=== PATIENT | male | born 1965 | race Two or more races ===

== ENCOUNTER 2020-07-16 10:17 | Outpatient (REF) | payer OTHER, SELFPAY | END 2020-07-16 10:18 | disposition home or self-care (01) | LOC: HO.LAB 10:17 | PROVIDERS: Visit Provider Internal Medicine | DX: Z20.828 Contact with and (suspected) exposure to other viral communicable diseases (principal) | CPT/HCPCS: C9803; U0003 ==

== ENCOUNTER 2020-10-22 15:50 | Outpatient (REF) | payer OTHER, SELFPAY ==
[2020-10-22 16:51] LABS: Hemoglobin 15.4 g/dl (14.0-18.0); Mean Corpuscular HGB Conc 34.2 g/dl (31.0-36.0); Mean Corpuscular Hemoglobin 29.9 pg (27.0-33.0); Mean Corpuscular Volume 87.4 fL (80-98); Mean Platelet Volume 12.2 fL (9.4-12.4); Platelet Count 200 X10*3/uL (160-400); Red Blood Count 5.15 X10*6/uL (4.60-5.80); Red Cell Distribution Width 12.1 % (11.0-16.0); White Blood Count 6.6 X10*3/uL (4.8-10.8)
[2020-10-22 17:10] LABS: Alanine Aminotransferase 20 U/L (0-40); Albumin Level 4.6 g/dL (3.5-5.0); Alkaline Phosphatase 68 U/L (39-117); Anion Gap 12 (12-20); Aspartate Amino Transferase 24 U/L (5-37); Bilirubin Direct 0.2 mg/dL (0.0-0.5); Bilirubin Total 0.6 mg/dL (0.0-1.0); Blood Urea Nitrogen 12 mg/dL (9-16); Calcium 10.1 mg/dL (8.4-10.2); Carbon Dioxide 29 mmol/L (22-29); Chloride 104 mmol/L (96-108); Cholesterol 161 mg/dL; Estimated Glomerular Filt Rate > 60; Glucose Random 82 mg/dL (60-115); HDL Cholesterol 54 mg/dL; LDL Cholesterol Calculated 97 mg/dl; Potassium 4.4 mmol/L (3.3-5.1); Sodium 141 mmol/L (135-145); Total Protein 7.9 g/dL (6.5-8.0); Triglycerides 52 mg/dL
[2020-10-22 17:33] LABS: Thyroid Stimulating Hormone 0.59 uIU/mL (0.32-4.0)
[2020-10-22 17:42] LABS: Folate 12.1 ng/mL (> or = 4.0); Vitamin B12 684 pg/mL (200-900)
[2020-10-22 17:59] LABS: Estimated Average Glucose 166 mg/dL; Hemoglobin A1c % 7.4 %
[2020-10-22 18:55] LABS: Microalbum/Creatinine Ratio Ur 235.7 ug/mg cr
[2020-10-27 12:01] LABS: Vitamin D 25-OH, D2 <4 ng/mL; Vitamin D 25-OH, D3 27 ng/mL; Vitamin D 25-OH, Total 27 ng/mL (30-100)
== END 2020-10-22 15:51 | disposition home or self-care (01) ==
LOC: HO.LAB 15:50
PROVIDERS: PCP Internal Medicine; Visit Provider Internal Medicine
DX: E11.9 Type 2 diabetes mellitus without complications (principal)
CPT/HCPCS: 36415; 80048; 80061; 80076; 82043; 82306; 82607; 82746; 83036; 84443; 85027

== ENCOUNTER 2021-02-28 14:23 | Emergency (ER) | payer OTHER, SELFPAY ==
--- NOTE | ~2021-02-28 | XR_ITS ---
EXAMINATION: XR FOOT, LEFT CLINICAL INFORMATION: Left heel pain COMPARISON: None TECHNIQUE: AP, lateral, and oblique views of the left foot. FINDINGS: There is no visible acute fracture, dislocation or subluxation seen. A moderate size calcaneal heel and a small retrocalcaneal enthesophytes. The ankle mortise and subtalar joints are normal. XR/XR foot LT min 3V IMPRESSION: Unremarkable left foot exam.
[2021-02-28 14:40] VITALS: BP 160/93; PULSE 88; RESP 18; TEMP 36.6; O2SAT 97; BMI 24.3
--- NOTE | 2021-02-28 15:31 | ED_ITS ---
HPI - Extremity Injury (Lower) General Chief Complaint: Extremity Injury, Lower Stated Complaint: foot pain Time Seen by Provider: 02/28/21 14:52 Source: patient Mode of arrival: ambulatory Limitations: no limitations History of Present Illness complaint: foot injury Onset (ago): day(s) (Three days worse today) Injury: Left: foot Place: street/outdoors (While mowing the lawn) Severity: mild Relieving factors: nothing Exacerbating factors: weight bearing, movement and palpation Context: walking and other (While mowing the lawn) Associated symptoms: ambulatory Other symptoms: none Related Data Previous Rx's Medication Instructions Recorded glimepiride 4 mg tablet 4 mg PO QAM #90 tab 06/26/20 simvastatin 40 mg tablet 40 mg PO QPM #90 tab 11/28/20 metformin 500 mg tablet 500 mg PO DAILY #90 tab 02/03/21 lidocaine HCl 4 % topical cream 1 appl TOPICAL BID PRN #120 g 02/28/21 (Aspercreme (lidocaine HCl)) naproxen 500 mg tablet 500 mg PO BID PRN #10 tab 02/28/21 oxycodone-acetaminophen 5 mg-325 1 tab PO Q6H PRN #10 tab 02/28/21 mg tablet (Percocet) Allergies Allergy/AdvReac Type Severity Reaction Status Date / Time No Known Allergies Allergy Verified 02/03/21 14:19 Review of Systems Review of Systems: Constitutional : No changes in activity, No lethargy, No recent prior head injury, No agitation, No increased fussiness ENT/Mouth : No Ear Pain, No Nasal discharge/drainage Eyes: No Eye Pain, No Swelling, No Redness, No Foreign Body, No Vision Changes Cardiovascular : No Chest Pain, No SOB Respiratory : No Cough Gastrointestinal : No Nausea, No Vomiting, No abdominal Pain Genitourinary : No Dysuria, No Urinary Frequency, No Urinary Incontinence, No Urgency, No Flank Pain Musculoskeletal : + joint pain, No neck stiffness, No back pain/injury Skin : No lacerations Neuro : No unsteady gait, No Paresthesias, No Loss of Consciousness, No altered mental status, No Headache Yes all other systems are reviewed and are negative [facility] Past Medical History Attestation statement: The following information was validated with the patient. 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 Hypercholesterolemia Hypertension Surgical History No history of previous surgery Family History Family History Mother Mental problem Father Renal failure Social History Social History Housing: Apartment Alcohol intake: current Alcohol intake frequency: holidays/special occasions only Alcohol type: beer Patient Tobacco Use Status: Never used Tobacco e-Cigarette/Vaping Use: Never Used Second Hand Smoke Exposure: No Advance Directives: No Advance Directives Information Provided: No service: No Current occupational status: retired Physical Exam Vital Signs: Vital Signs: Last Vital Signs Temp 98 F 02/28/21 14:40 Pulse 88 02/28/21 14:40 Resp 18 02/28/21 14:40 BP 160/93 H 02/28/21 14:40 Pulse Ox 97 02/28/21 14:40 Body Mass Index 24.3 vital signs have been reviewed as normal and appeared to be correct. Blood pressure normal. Heart rate normal. Respiration rate normal. Temperature normal. Oxygen saturation normal. Appearance: Alert. Oriented X3. No acute distress. Head: Normal external exam. Normocephalic. Atraumatic. Eyes: PERRLA. EOMI. Conjunctiva and sclera normal. Eyelids normal. ENT: Pharynx normal. Uvula midline. Moist mucous membranes. Neck: Normal inspection. Neck supple. FROM. No adenopathy. Thyroid Normal. No meningeal signs. No neck mass noted. CVS: Normal heart rate and rhythm. Heart sound normal. Pulses normal throughout. No murmurs/rales/gallops. Respiratory: No respiratory distress. Painless inspiration. Breath sounds normal. No wheezes/rales/rhonchi noted. Chest nontender. No accessory muscle usage noted or decreased air movement noted. Back:Full range of motion noted. No rashes/lesion/induration/fluctuance or signs of infection noted. Skin: Skin warm and dry. Normal skin color. Normal skin turgor. No rashes/lesions/lacerations noted. Extremities: Patient with tenderness to palpation to plantar aspect of left foot. No erythema or obvious deformities or ligamentous laxity. Achilles tendon is intact. No swelling noted. Patient has full range of motion of the foot/ankle joint. No lower extremity edema. Extremities exhibit normal range of motion. Extremities nontender. Neuro: Oriented X 3. No motor deficit. No sensory deficit. Reflexes normal. Normal steady gait. No focal neuro deficits noted. Vascular: + radial pulses/+ 2 distal pedal pulses/+2 dorsalis pedis b/l. Normal cap refill. No cyanosis noted to upper extremity nails and lower extremity toes nails. Course Course Course Narrative: 55-year-old male presenting to the ED with complaints of left heel pain after he was mowing the lawn approximately 3 days ago. Denies any actual fall. On exam patient has pain to plantar/heel aspect of foot. No signs of infection. Ankle joint is nontender. Achilles tendon is intact. X-ray obtained and negative for any acute processes. Will DC home with symptomatic treatment instructions return if any new or worsening symptoms to follow up with primary care provider. Patient understands agrees with this plan. MDM - Extremity Injury (Lower) Medical Records Attestation: I reviewed the patient's medical records. Imaging Data Left foot x-ray: Attestation: I personally reviewed and interpreted this imaging study as follows: Radiologist's impression: FINDINGS: There is no visible acute fracture, dislocation or subluxation seen. A moderate size calcaneal heel and a small retrocalcaneal enthesophytes. The ankle mortise and subtalar joints are normal. XR/XR foot LT min 3V IMPRESSION: Unremarkable left foot exam. Discharge Plan Discharge Clinical Impression: Bone spur of foot, Plantar fasciitis of left foot Patient Disposition: Home, Self-Care Instructions: Plantar Fasciitis (ED), Heel Spur (ED), Plantar Fasciitis Exercises (ED) Prescriptions: New lidocaine HCl [Aspercreme (lidocaine HCl)] 4 % cream 1 appl topical BID PRN (Reason: pain) Qty: 120 RF: 0 oxycodone-acetaminophen [Percocet] 5-325 mg tablet 1 tab PO Q6H PRN (Reason: pain) Qty: 10 RF: 0 naproxen 500 mg tablet 500 mg PO BID PRN (Reason: pain) Qty: 10 RF: 0 No Action glimepiride 4 mg tablet 4 mg PO QAM Qty: 90 RF: 1 simvastatin 40 mg tablet 40 mg PO QPM Qty: 90 RF: 0 metformin 500 mg tablet 500 mg PO DAILY Qty: 90 RF: 1 Referrals: Elmer Atkinson [Physician] - 2 days Print Language: Kiswahili
== END 2021-02-28 15:42 | disposition home or self-care (01) ==
PROVIDERS: Emergency Provider Emergency Medicine
DX: M77.32 Calcaneal spur, left foot (principal); M72.2 Plantar fascial fibromatosis; E11.9 Type 2 diabetes mellitus without complications
CPT/HCPCS: 73630; 99283

== ENCOUNTER 2021-05-22 13:55 | Emergency (ER) | payer OTHER, SELFPAY ==
[2021-05-22 14:21] VITALS: BP 166/67; PULSE 70; RESP 16; TEMP 36.9; O2SAT 98; BMI 26.1
--- NOTE | 2021-05-22 14:48 | ED_ITS ---
HPI - General Adult General Chief complaint: Dental/Oral Stated complaint: QUEST FACIAL INFECTION Time Seen by Provider: 05/22/21 14:48 Source: patient Limitations: no limitations History of Present Illness HPI narrative: Patient has a known history of dental caries and dental abscess. Patient states increasing pain after biting on a chicken bone. Patient states pain is diffuse in his oral cavity. Also some redness the right nasal fold. Symptoms mild to moderate pain 10/10. No nausea vomiting fever chills shortness of breath. Related Data Previous Rx's Medication Instructions Recorded simvastatin 40 mg tablet 40 mg PO QPM #90 tab 11/28/20 metformin 500 mg tablet 500 mg PO DAILY #90 tab 02/03/21 lidocaine HCl 4 % topical cream 1 appl TOPICAL BID PRN #120 g 02/28/21 (Aspercreme (lidocaine HCl)) naproxen 500 mg tablet 500 mg PO BID PRN #10 tab 02/28/21 oxycodone-acetaminophen 5 mg-325 1 tab PO Q6H PRN #10 tab 02/28/21 mg tablet (Percocet) glimepiride 4 mg tablet 4 mg PO QAM #90 tab 03/11/21 clindamycin HCl 300 mg capsule 300 mg PO TID 7 Days #21 cap 05/22/21 ibuprofen 600 mg tablet 600 mg PO TID PRN #20 tab 05/22/21 Allergies Allergy/AdvReac Type Severity Reaction Status Date / Time No Known Allergies Allergy Verified 02/03/21 14:19 Review of Systems Constitutional: Constitutional: Denies chills, Denies fever(s) and Denies headache(s) Eyes: Eyes: Denies loss of vision ENT: Reports facial pain, Denies headache(s) and Reports mouth pain Cardiovascular: Cardiovascular: Denies chest pain and Denies dyspnea Respiratory: Respiratory: Denies dyspnea Musculoskeletal: Musculoskeletal: Reports no additional musculoskeletal complaints Neurologic: Denies headache(s) and Denies loss of vision [facility] Past Medical History 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4 F 05/22/21 14:21 Pulse 70 05/22/21 14:21 Resp 16 05/22/21 14:21 BP 166/67 H 05/22/21 14:21 Pulse Ox 98 05/22/21 14:21 Body Mass Index 26.1 vital signs have been reviewed as normal and appeared to be correct. Blood pressure normal. Heart rate normal. Respiration rate normal. Temperature normal. Oxygen saturation normal. Appearance: Alert. Oriented X3. No acute distress. Head: Normal external exam. Normocephalic. Atraumatic. = Eyes: PERRLA. EOMI. Conjunctiva and sclera normal. Eyelids normal. Bilateral orbits nontender no signs of preseptal cellulitis ENT: Pharynx normal. Uvula midline. Moist mucous membranes. Dentition in poor repair diffuse tenderness no obvious drainable abscess Neck: Soft full range of motion CVS: Heart regular rate and rhythm no murmurs and rubs Respiratory: Breath sounds are clear to auscultation bilaterally. No accessory muscle use noted. Skin: Patient describes some redness the right nasal fold no obvious abscess noted minimal to no erythema Extremities: No lower extremity edema. Extremities exhibit normal range of motion. Extremities nontender. Neuro: Oriented X 3. No motor deficit. No sensory deficit. Reflexes normal. Course Course Course Narrative: Dental caries Dental abscess Right-sided facial pain facial cellulitis Patient's symptoms are consistent with dental caries will treat with antibiotics at this time follow-up with dentist Discharge Plan Discharge Clinical Impression: Dental caries Patient Disposition: Home, Self-Care Instructions: Toothache (ED) Additional Instructions: Call dentist for follow-up antibiotics as directed Prescriptions: New clindamycin HCl 300 mg capsule 300 mg PO TID 7 Days Qty: 21 RF: 0 ibuprofen 600 mg tablet 600 mg PO TID PRN (Reason: pain) Qty: 20 RF: 0 No Action simvastatin 40 mg tablet 40 mg PO QPM Qty: 90 RF: 0 glimepiride 4 mg tablet 4 mg PO QAM Qty: 90 RF: 1 lidocaine HCl [Aspercreme (lidocaine HCl)] 4 % cream 1 appl topical BID PRN (Reason: pain) Qty: 120 RF: 0 oxycodone-acetaminophen [Percocet] 5-325 mg tablet 1 tab PO Q6H PRN (Reason: pain) Qty: 10 RF: 0 naproxen 500 mg tablet 500 mg PO BID PRN (Reason: pain) Qty: 10 RF: 0 metformin 500 mg tablet 500 mg PO DAILY Qty: 90 RF: 1
== END 2021-05-22 15:04 | disposition home or self-care (01) ==
PROVIDERS: Emergency Provider Emergency Medicine; PCP Internal Medicine
DX: K02.9 Dental caries, unspecified (principal); Z79.899 Other long term (current) drug therapy
CPT/HCPCS: 99283

== ENCOUNTER 2021-07-30 11:21 | Outpatient (REF) | payer OTHER, SELFPAY ==
[2021-07-30 12:15] LABS: Hematocrit 43.8 % (42.0-52.0); Mean Corpuscular HGB Conc 34.2 g/dl (31.0-36.0); Mean Corpuscular Hemoglobin 30.5 pg (27.0-33.0); Mean Corpuscular Volume 89.2 fL (80.0-98.0); Mean Platelet Volume 11.8 fL (9.4-12.4); Platelet Count 194 X10*3/uL (160-400); Red Blood Count 4.91 X10*6/uL (4.60-5.80); Red Cell Distribution Width 12.1 % (11.0-16.0); White Blood Count 7.7 X10*3/uL (4.8-10.8)
[2021-07-30 12:20] LABS: Appearance Urine CLEAR; Color Urine YELLOW; Glucose Urine UA NEG (NEG); Leukocyte Esterase Urine NEG (NEG); Nitrite Urine NEG (NEG); Specific Gravity - Urine >= 1.030 (1.005-1.025); Urine Blood NEG (NEG); Urine Ketones 5 MG/DL (NEG); Urine Protein 1+ MG/DL (NEG-TRACE)
[2021-07-30 12:21] LABS: Estimated Average Glucose 154 mg/dL
[2021-07-30 12:46] LABS: Alanine Aminotransferase 23 U/L (0-40); Albumin Level 4.3 g/dL (3.5-5.0); Alkaline Phosphatase 60 U/L (39-117); Anion Gap 12 (12-20); Aspartate Amino Transferase 23 U/L (5-37); Bilirubin Direct 0.2 mg/dL (0.0-0.5); Bilirubin Total 0.5 mg/dL (0.0-1.0); Blood Urea Nitrogen 13 mg/dL (9-16); Calcium 10.2 mg/dL (8.4-10.2); Carbon Dioxide 28 mmol/L (22-29); Chloride 108 mmol/L (96-108); Cholesterol 154 mg/dL; Estimated Glomerular Filt Rate > 60; Glucose Random 120 mg/dL (60-115); HDL Cholesterol 57 mg/dL; LDL Cholesterol Calculated 88 mg/dl; Potassium 4.6 mmol/L (3.3-5.1); Sodium 143 mmol/L (135-145); Total Protein 7.5 g/dL (6.5-8.0); Triglycerides 48 mg/dL
[2021-07-30 12:50] LABS: RBC Urine 0 /HPF (0); Squamous Epithelial Cell Urine TRACE /LPF; WBC Urine 0-2 /HPF (0-4)
[2021-07-30 13:11] LABS: Thyroid Stimulating Hormone 0.94 uIU/mL (0.32-4.0)
== END 2021-07-30 11:22 | disposition home or self-care (01) ==
LOC: HO.LAB 11:21
PROVIDERS: PCP Internal Medicine; Visit Provider Internal Medicine
DX: E11.9 Type 2 diabetes mellitus without complications (principal); E78.00 Pure hypercholesterolemia, unspecified
CPT/HCPCS: 36415; 80048; 80061; 80076; 81001; 83036; 84443; 85027

== ENCOUNTER 2023-03-19 12:39 | Emergency (ER) | payer OTHER, SELFPAY ==
--- NOTE | ~2023-03-19 | XR_ITS ---
EXAMINATION: XR FOOT, RIGHT CLINICAL INFORMATION: Lateral pain COMPARISON: None available. TECHNIQUE: AP, lateral, and oblique views of the right foot. FINDINGS: No acute visible fracture or dislocation. Multi joint arthritic changes. Plantar calcaneal heel spur. Mild spurring the dorsal midfoot. Joint spaces and alignment are otherwise maintained. Soft tissues are unremarkable. Prominent atherosclerotic calcifications. XR/XR foot RT min 3V IMPRESSION: 1. No acute visible fracture or dislocation. 2. Multi joint arthritic changes. 3. Plantar calcaneal heel spur.
[2023-03-19 12:53] VITALS: BP 140/92; PULSE 89; RESP 18; TEMP 36.4; O2SAT 97; BMI 24.1
--- NOTE | 2023-03-19 12:55 | ED.LOWEXIN ---
HPI - Extremity Injury (Lower) General Chief Complaint: Extremity Injury, Lower Stated Complaint: R foot pain Time Seen by Provider: 03/19/23 13:38 Source: patient Mode of arrival: ambulatory Limitations: no limitations History of Present Illness HPI Narrative: 49-year-old male presents to the ER for evaluation of right lateral foot pain that started yesterday after he missed a step 1 walking down stairs. He states he had minimal swelling or pain at the time. As time went on he started to develop some soreness in the right lateral foot near the heel. He is able to put on issues and ambulate normally. No ankle injury. No open wounds. Denies any numbness or tingling. complaint: foot injury Onset (ago): day(s) (1) Injury: Right: foot Type of Injury: inversion Place: home Severity: mild Severity scale (1-10): 2 Relieving factors: nothing Exacerbating factors: weight bearing and palpation Context: fall Associated symptoms: ambulatory Other symptoms: none Related Data Previous Rx's Medication Instructions Recorded lidocaine HCl 4 % topical cream 1 appl topical BID PRN pain #120 02/28/21 (Aspercreme (lidocaine HCl)) grams metformin 500 mg tablet 500 mg PO DAILY #90 tabs 10/14/22 glimepiride 4 mg tablet 4 mg PO QAM #90 tabs 01/06/23 simvastatin 40 mg tablet 40 mg PO QPM #10 tabs 03/15/23 Allergies Allergy/AdvReac Type Severity Reaction Status Date / Time No Known Allergies Allergy Verified 03/19/23 12:53 Review of Systems Review of Systems: Yes all other systems are reviewed and are negative PMFSH Past Medical History 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 Hypercholesterolemia Hypertension Surgical History No history of previous surgery Family History Family History Mother Mental problem Father Renal failure Social History Social History Housing: Apartment Alcohol intake: current Alcohol intake frequency: holidays/special occasions only Alcohol type: beer Patient Tobacco Use Status: Never used Tobacco e-Cigarette/Vaping Use: Never Used Second Hand Smoke Exposure: No Advance Directives: No Advance Directives Information Provided: No service: No Current occupational status: retired Cognitive needs: No Hearing needs: No Vision needs: No Physical Exam Vital Signs: Vital Signs: Last Vital Signs Temp 97.5 F 03/19/23 12:53 Pulse 89 03/19/23 12:53 Resp 18 03/19/23 12:53 BP 140/92 H 03/19/23 12:53 Pulse Ox 97 03/19/23 12:53 O2 Del Method Room Air 03/19/23 12:53 BMI result Body Mass Index 24.1 Appearance: Alert. Oriented X3. No acute distress. HEENT: normal inspection CVS: Normal heart rate and rhythm. Pulses normal. Respiratory: No respiratory distress. Skin: Skin warm and dry. Normal skin color. Normal skin turgor. No rashes. Extremities: Normal inspection of the right foot. No swelling of the foot or ankle. There is some tenderness of the lateral foot near the heel. No metatarsal tenderness. Normal range of motion of the toes. Neurovascularly intact. no erythema or warmth. Neuro: Oriented X 3. No motor deficit. No sensory deficit. Steady gait Course Course Course Narrative: This is an RME: Additional HPI, ROS, PE not included below will be deferred to primary provider. This is a [id number], hx of diabetes, HTN, hypercholesterolemia, presenting to the ER with complaints of right foot pain since yesterday. He states that he missed a step and struck the lateral aspect of his right foot on a step. He has had pain with weight bearing since. TTP over right fifth metatarsal, DP pulses 2+. No obvious deformity or swelling. Malleloli nontender. Full ROM of the foot and ankle. Plan: Xray right foot Medical Decision Making Medical Decision Making MDM Narrative: 57 yo male presenting with right lateral foot pain s/p trip down 1 step yesterday. exam is unremarkable. No point tenderness. No swelling. Doubt acute fracture. X-ray showed no acute fracture today. Most likely mild contusion. Patient counseled on diagnosis and management. Stable for discharge home. Differential Diagnosis Differential Diagnoses: The differential diagnosis associated with the presentation includes Marcos fracture, ankle fracture, foot fracture, foot contusion, foot sprain Independent Interpretation I performed an independent interpretation of an: Plain X-Ray Interpretation: XR without acute fracture, agree with radiology read Radiology Impression Discussion of test interpretation with radiology: I have reviewed the radiologist's reading. Radiologist Impression: EXAMINATION: XR FOOT, RIGHT CLINICAL INFORMATION: Lateral pain? COMPARISON: None available.? TECHNIQUE: AP, lateral, and oblique views of the right foot. FINDINGS: No acute visible fracture or dislocation. Multi joint arthritic changes. Plantar calcaneal heel spur. Mild spurring the dorsal midfoot. Joint spaces and alignment are otherwise maintained. Soft tissues are unremarkable. Prominent atherosclerotic calcifications.? XR/XR foot RT min 3V IMPRESSION: 1.? No acute visible fracture or dislocation. 2.? Multi joint arthritic changes. 3.? Plantar calcaneal heel spur. External Record Review External record reviewed: Outpatient record and Prior outpatient labs Prescription Management I considered prescription management with: Pain Medication Chronic Conditions Patient?s care impacted by: Diabetes Discharge Plan Discharge Clinical Impression: Contusion of foot, right Patient Disposition: Home, Self-Care Instructions: Foot Contusion (ED) Additional Instructions: Your x-ray today didnot show any evidence of broken bones. Rest your foot and elevate your it when possible. Use ice several times per day for the next 48 hours. Take Motrin and/or Tylenol as needed for pain. Follow up with your doctor as needed. Prescriptions: No Action metformin 500 mg tablet 500 mg PO DAILY Qty: 90 1RF glimepiride 4 mg tablet 4 mg PO QAM Qty: 90 1RF simvastatin 40 mg tablet 40 mg PO QPM Qty: 10 0RF lidocaine HCl [Aspercreme (lidocaine HCl)] 4 % cream 1 appl topical BID PRN (Reason: pain) Qty: 120 0RF
== END 2023-03-19 14:22 | disposition home or self-care (01) ==
PROVIDERS: Emergency Provider Emergency Medicine; PCP Internal Medicine
DX: S90.31XA Contusion of right foot, initial encounter (principal); W10.9XXA Fall (on) (from) unspecified stairs and steps, initial encounter; Y93.9 Activity, unspecified; Y92.9 Unspecified place or not applicable; Y99.9 Unspecified external cause status
CPT/HCPCS: 73630; 99282; 99283

== ENCOUNTER 2023-07-08 13:51 | Outpatient (AMB) | payer OTHER, SELFPAY ==
--- NOTE | 2023-07-08 13:55 | MHC.PC.OV ---
Vital Signs 07/08/23 13:57 Height 5 ft 4 in Weight 139 lb 8 oz BMI 23.9 BP 120/70 Blood Pressure Location Lt brachial Position Sitting Pulse 79 Pulse Source Pulse Oximeter Pulse Oximetry (%) 98 Oxygen Delivery Method Room Air Intake Visit Reasons: FOLLOW UP- NEEDS PHQ9+THRIVE Intake Note: Patient is here to follow up on DM, Hypercholesterolemia. Electronics Hardware Design Engineer Required: No Sales And Leasing Consultant: Not Required per policy Accompanied by: Self / Same As Patient Allergies No Known Allergies Allergy (Verified 07/08/23 13:56) Tobacco use date assessed: 07/08/23 Dental Screening Dental Screen Date: 07/08/23 Did you have a dental visit in the last 12 months?: No Did you have a dental problem in the last 6 months where you did not have access to dental care?: No Was dental information given to patient?: No HPI FOLLOW UP- NEEDS PHQ9+THRIVE HPI Details 57-year-old male presents to the office to discuss his chronic medical conditions. Continues to take medications for diabetes. Very reluctant to change any of them. Not checking his sugars at home. Able to function and do all activities of daily living. 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 1. Little interest or pleasure in doing things: not at all 2. Feeling down, depressed, or hopeless: not at all 3. Trouble falling or staying asleep, or sleeping too much: not at all 4. Feeling tired or having little energy: not at all 5. Poor appetite or overeating: not at all 6. Feeling bad about yourself - or that you are a failure or have let yourself or your family down: not at all 7. Trouble concentrating on things, such as reading the newspaper or watching television: not at all 8. Moving or speaking so slowly that other people could have noticed. Or the opposite - being so fidgety or restless that you have been moving around a lot more than usual: not at all 9. Thoughts that you would be better off or of hurting yourself in some way: not at all Total score: 0 Depression Screening Interpretation: Negative Depression Screening Done: Yes Source: Developed by Drs. Renny Yoon, Christina Freeman, Bryce Tubbs and colleagues, with an educational tanmay from [employer]. Thrive Questionnaire Date Thrive assessed: 07/08/23 I am a: Patient What is your living situation today?: I have a steady place to live Within the past 12 months, did the food you bought not last and you didn't have the money to get more?: Never true Within the past 12 months, did you worry whether your food would run out before you got money to buy more?: Never true Do you have trouble paying for medicines?: No Do you have trouble getting transportation to medical appointments?: No Do you have trouble paying your heating and electricity bill?: No Do you have trouble taking care of your child, family member or friend?: No Do you have trouble with day-to-day activities such as bathing, preparing meals, shopping, managing finances, etc.?: No Are you currently unemployed and looking for a job?: No Are you interested in more education?: No Currently or been in a relationship where the following occur: no concerns reported AUDIT C Alcohol Use Questionnaire (AUDIT-C) 1. How often do you have a drink containing alcohol?: Monthly or less 2. How many drinks containing alcohol do you have on a typical day when you are drinking?: 1 or 2 Total Score: 1 MONICA-7 AMB Questionnaire MONICA-7 Date MONICA - 7 assessed: 07/08/23 Feeling nervous, anxious, or on edge: 0 = Not at all Not being able to stop or control worryin = Not at all Worrying too much about different things: 0 = Not at all Trouble relaxin = Not at all Being so restless that it is hard to sit still: 0 = Not at all Becoming easily annoyed or irritable: 0 = Not at all Feeling afraid as if something awful might happen: 0 = Not at all Total MONICA-7 score (0-4 normal; 5-9 mild; 10-14 moderate; 15-21 severe): 0 Source: Developed by Drs. Renny Yoon, Christina Freeman, Bryce Tubbs and colleagues, with an educational tanmay from [employer]. Physical exam (Primary Care) Vital Signs: Last Vital Signs Pulse 79 07/08/23 13:57 BP 120/70 07/08/23 13:57 Pulse Ox 98 07/08/23 13:57 Oxygen Delivery Method Room Air 07/08/23 13:57 BMI result Body Mass Index 23.9 Tobacco/Smoking Status: Tobacco use Status Tobacco use date assessed 07/08/23 07/08/23 14:06 Patient Tobacco Use Status Never used Tobacco 07/08/23 14:06 e-Cigarette/Vaping Use Never Used 07/08/23 14:06 PHQ-9: PHQ-9 Score PHQ-9: Total score 0 07/08/23 14:06 Depression Screening Interpretation: Negative Thrive Assessment: Date of Thrive Assessment Date Thrive assessed 07/08/23 07/08/23 14:06 Currently or been in a relationship where the following occur: no concerns reported Const General: cooperative and healthy appearing Nutritional Appearance: well nourished Orientation/consciousness: patient oriented x3 Limitations: no limitations HENMT Head: Yes normal to inspection Eyes General: appearance normal, both eyes and all related structures Neck Neck: Yes normal visual inspection Chest Chest palpation & inspection: normal palpation of entire chest wall Resp Effort & Inspection: normal respiratory effort Neuro General: patient oriented x3 Results AMB Hemoglobin A1c AMB Hemoglobin A1c 7.5 % Last Edit by AIME Ellis on 07/08/23 14:13 Assessment and Plan Assessment & Plan (1) Diabetes mellitus: Code(s): E11.9 - Type 2 diabetes mellitus without complications Qualifiers: Diabetes mellitus type: type 2 Diabetes mellitus exterminator helper insulin use: without exterminator helper use Diabetes mellitus complication status: without complication Qualified Code(s): E11.9 - Type 2 diabetes mellitus without complications Plan: A1c is 7.5. Patient not willing to change the medications he is currently taking. I tried to explain to him that newer medications are available. He has history of optic issues with diabetes. Patient refuses to see an alumni relations officer. Declines to have a routine screening colonoscopy. (2) Hypercholesterolemia: Code(s): E78.00 - Pure hypercholesterolemia, unspecified Plan: Blood work ordered. Continue statins at same dosage. Orders: Orders Complete Blood Count no Diff Today E11.9 - Type 2 diabetes mellitus without complications, E78.00 - Pure hypercholesterolemia, unspecified Basic Metabolic Panel Today E11.9 - Type 2 diabetes mellitus without complications, E78.00 - Pure hypercholesterolemia, unspecified Lipid Panel Today E11.9 - Type 2 diabetes mellitus without complications, E78.00 - Pure hypercholesterolemia, unspecified Thyroid Stimulating Hormone Today E11.9 - Type 2 diabetes mellitus without complications, E78.00 - Pure hypercholesterolemia, unspecified UA and rflx microscopic Today E11.9 - Type 2 diabetes mellitus without complications, E78.00 - Pure hypercholesterolemia, unspecified AMB Hemoglobin A1c Today E11.9 - Type 2 diabetes mellitus without complications Liver Panel Today E11.9 - Type 2 diabetes mellitus without complications, E78.00 - Pure hypercholesterolemia, unspecified Microalbumin, Random (w Creat) Today E11.9 - Type 2 diabetes mellitus without complications, E78.00 - Pure hypercholesterolemia, unspecified Medications: Refilled metformin 500 mg PO DAILY 90 tabs 1RF glimepiride 4 mg PO QAM 90 tabs 1RF simvastatin 40 mg PO QPM 90 tabs 0RF E78.00 - Pure hypercholesterolemia, unspecified Coding Level of Care Code Est Pt Level 4 (99001) Diagnoses Type 2 diabetes mellitus without complication, without long-term current use of insulin E11.9 Diabetes mellitus type: type 2 Diabetes mellitus exterminator helper insulin use: without exterminator helper use Diabetes mellitus complication status: without complication Hypercholesterolemia E78.00
[2023-07-08 13:57] VITALS: BP 120/70; PULSE 79; O2SAT 98; BMI 23.9
== END 2023-07-08 14:17 | disposition home or self-care (01) ==
PROVIDERS: PCP Internal Medicine; Visit Provider Internal Medicine
DX: E11.9 Type 2 diabetes mellitus without complications (principal); E78.00 Pure hypercholesterolemia, unspecified
CPT/HCPCS: 83036; 99214

== ENCOUNTER 2023-07-08 14:25 | Outpatient (REF) | payer OTHER, SELFPAY ==
[2023-07-08 15:06] LABS: Hematocrit 44.5 % (42.0-52.0); Hemoglobin 15.3 g/dl (14.0-18.0); Mean Corpuscular HGB Conc 34.4 g/dl (31.0-36.0); Mean Corpuscular Hemoglobin 30.4 pg (27.0-33.0); Mean Corpuscular Volume 88.3 fL (80.0-98.0); Mean Platelet Volume 11.3 fL (9.4-12.4); Platelet Count 208 X10*3/uL (160-400); Red Blood Count 5.04 X10*6/uL (4.60-5.80)
[2023-07-08 15:16] LABS: Appearance Urine Clear; Color Urine Yellow; Glucose Urine UA Negative (Negative); Leukocyte Esterase Urine Negative (Negative); Nitrite Urine Negative (Negative); PH 5.5 (5.0-9.0); Specific Gravity - Urine 1.025 (1.005-1.025); UMIC TRIGGER UA YES; Urine Blood Negative (Negative); Urine Ketones Negative (Negative); Urine Protein 100 (2+) mg/dL (Neg-Trace)
[2023-07-08 15:21] LABS: Bacteria Urine None Seen (None Seen); Hyaline Casts Urine 0-2 /LPF (0-2); RBC Urine 0-2 /HPF (0-2); Squamous Epithelial Cell Urine 0-2 /HPF (0-2); WBC Urine 0-5 /HPF (0-5)
[2023-07-08 15:38] LABS: Alanine Aminotransferase 17 U/L (0-40); Albumin Level 4.2 g/dL (3.5-5.0); Alkaline Phosphatase 54 U/L (39-117); Anion Gap 12 (12-20); Aspartate Amino Transferase 21 U/L (5-37); Bilirubin Direct 0.2 mg/dL (0.0-0.5); Bilirubin Total 0.5 mg/dL (0.0-1.0); Blood Urea Nitrogen 17 mg/dL (9-16); Calcium 9.9 mg/dL (8.4-10.2); Carbon Dioxide 29 mmol/L (22-29); Chloride 105 mmol/L (96-108); Cholesterol 149 mg/dL (<200); Estimated Glomerular Filt Rate > 60; Glucose Random 106 mg/dL (60-115); HDL Cholesterol 58 mg/dL (>40); LDL Cholesterol Calculated 84 mg/dL (<100); Potassium 4.3 mmol/L (3.3-5.1); Sodium 142 mmol/L (135-145); Total Protein 7.7 g/dL (6.5-8.0); Triglycerides 35 mg/dL (<150)
[2023-07-08 15:53] LABS: Thyroid Stimulating Hormone 0.65 uIU/mL (0.32-4.0)
[2023-07-08 15:59] LABS: Creatinine Urine 207.75 mg/dL
[2023-07-08 16:19] LABS: Microalbum/Creatinine Ratio Ur 472.6 ug/mg cr (<30)
== END 2023-07-08 14:26 | disposition home or self-care (01) ==
LOC: HO.LAB 14:25
PROVIDERS: PCP Internal Medicine; Visit Provider Internal Medicine
DX: E11.9 Type 2 diabetes mellitus without complications (principal); E78.00 Pure hypercholesterolemia, unspecified
CPT/HCPCS: 36415; 80048; 80061; 80076; 81001; 82043; 82570; 84443; 85027

== ENCOUNTER 2024-01-06 13:53 | Outpatient (AMB) | payer OTHER, SELFPAY ==
--- NOTE | 2024-01-06 14:07 | A.OFFPC_ITS ---
Vital Signs 01/06/24 14:11 Height 5 ft 4 in Weight 138 lb 6 oz BMI 23.7 BP 138/60 Blood Pressure Location Lt brachial Position Sitting Pulse 73 Pulse Source Pulse Oximeter Pulse Oximetry (%) 99 Oxygen Delivery Method Room Air Intake Visit Reasons: 6 MON FUP- NEEDS A1C Intake Note: Patient is here to follow up on DM, Hypercholesterolemia . Internet Security Specialist Required: No International Marketing Manager: Not Required per policy Accompanied by: Self / Same As Patient Allergies No Known Allergies Allergy (Verified 01/06/24 14:11) Tobacco use date assessed: 01/06/24 Dental Screening Dental Screen Date: 01/06/24 Did you have a dental visit in the last 12 months?: Yes Did you have a dental problem in the last 6 months where you did not have access to dental care?: No Was dental information given to patient?: Patient has dentist HPI 6 MON FUP- NEEDS A1C HPI Details 58-year-old male presents to the office to discuss his chronic medical conditions. Patient is compliant with medications and reporting no side effects. Continues to exercise and do all activities of daily living. Does not check his blood sugars frequently. 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 1. Little interest or pleasure in doing things: not at all 2. Feeling down, depressed, or hopeless: not at all 3. Trouble falling or staying asleep, or sleeping too much: not at all 4. Feeling tired or having little energy: not at all 5. Poor appetite or overeating: not at all 6. Feeling bad about yourself - or that you are a failure or have let yourself or your family down: not at all 7. Trouble concentrating on things, such as reading the newspaper or watching television: not at all 8. Moving or speaking so slowly that other people could have noticed. Or the opposite - being so fidgety or restless that you have been moving around a lot more than usual: not at all 9. Thoughts that you would be better off or of hurting yourself in some way: not at all Total score: 0 Depression Screening Interpretation: Negative Depression Screening Done: Yes Source: Developed by Drs. Renny Yoon, Christina Freeman, Bryce Tubbs and colleagues, with an educational tanmay from [employer]. Thrive Questionnaire Date Thrive assessed: 01/06/24 I am a: Patient What is your living situation today?: I have a steady place to live Within the past 12 months, did the food you bought not last and you didn't have the money to get more?: Never true Within the past 12 months, did you worry whether your food would run out before you got money to buy more?: Never true Do you have trouble paying for medicines?: No Do you have trouble getting transportation to medical appointments?: No Do you have trouble paying your heating and electricity bill?: No Do you have trouble taking care of your child, family member or friend?: No Do you have trouble with day-to-day activities such as bathing, preparing meals, shopping, managing finances, etc.?: No Are you currently unemployed and looking for a job?: No Are you interested in more education?: No Currently or been in a relationship where the following occur: no concerns reported THRIVE Score: 0 AUDIT C Alcohol Use Questionnaire (AUDIT-C) 1. How often do you have a drink containing alcohol?: Monthly or less 2. How many drinks containing alcohol do you have on a typical day when you are drinking?: 1 or 2 Total Score: 1 MONICA-7 AMB Questionnaire MONICA-7 Date MONICA - 7 assessed: 01/06/24 Feeling nervous, anxious, or on edge: 0 = Not at all Not being able to stop or control worryin = Not at all Worrying too much about different things: 0 = Not at all Trouble relaxin = Not at all Being so restless that it is hard to sit still: 0 = Not at all Becoming easily annoyed or irritable: 0 = Not at all Feeling afraid as if something awful might happen: 0 = Not at all Total MONICA-7 score (0-4 normal; 5-9 mild; 10-14 moderate; 15-21 severe): 0 Source: Developed by Drs. Renny Yoon, Christina Freeman, Bryce Tubbs and colleagues, with an educational tanmay from [employer]. Physical exam (Primary Care) Vital Signs: Last Vital Signs Pulse 73 01/06/24 14:11 BP 138/60 01/06/24 14:11 Pulse Ox 99 01/06/24 14:11 Oxygen Delivery Method Room Air 01/06/24 14:11 Care Plan Goal for BP management: Blood pressure is in range. Continue current medications. BMI result Body Mass Index 23.7 Tobacco/Smoking Status: Tobacco use Status Tobacco use date assessed 01/06/24 01/06/24 14:16 Patient Tobacco Use Status Never used Tobacco 01/06/24 14:08 e-Cigarette/Vaping Use Never Used 01/06/24 14:08 PHQ-9: PHQ-9 Score PHQ-9: Total score 0 01/06/24 14:16 Depression Screening Interpretation: Negative Thrive Assessment: Date of Thrive Assessment Date Thrive assessed 01/06/24 01/06/24 14:16 Currently or been in a relationship where the following occur: no concerns reported Const General: cooperative and healthy appearing Nutritional Appearance: well nourished Orientation/consciousness: patient oriented x3 Limitations: no limitations HENMT Head: Yes normal to inspection Eyes General: appearance normal, both eyes and all related structures Neck Neck: Yes normal visual inspection Chest Chest palpation & inspection: normal palpation of entire chest wall Resp Effort & Inspection: normal respiratory effort Neuro General: patient oriented x3 Results AMB Hemoglobin A1c AMB Hemoglobin A1c 7.3 % Last Edit by AIME Ellis on 01/06/24 14:21 Results Reviewed Results Reviewed: Laboratory Last Values Hgb A1c (Clinic) 7.3 % (4.0-6.0) H 01/06/24 14:07 Assessment and Plan Assessment & Plan (1) Diabetes mellitus: Code(s): E11.9 - Type 2 diabetes mellitus without complications Qualifiers: Diabetes mellitus type: type 2 Diabetes mellitus long term care social worker insulin use: without long term care social worker use Diabetes mellitus complication status: without complication Qualified Code(s): E11.9 - Type 2 diabetes mellitus without complications Plan: A1c has improved from 7.5-7.3. Compliant with medication encourage. Importance of diet and exercise explained. (2) Hypercholesterolemia: Code(s): E78.00 - Pure hypercholesterolemia, unspecified Plan: LDL is in range. Continue medications at same dosage. Orders: Orders AMB Hemoglobin A1c Today E11.9 - Type 2 diabetes mellitus without complications Coding Level of Care Code Est Pt Level 4 (71682) Complex EM visit Add On G2211 Diagnoses Type 2 diabetes mellitus without complication, without long-term current use of insulin E11.9 Diabetes mellitus type: type 2 Diabetes mellitus care home insulin use: without long term care social worker use Diabetes mellitus complication status: without complication Hypercholesterolemia E78.00
[2024-01-06 14:11] VITALS: BP 138/60; PULSE 73; O2SAT 99; BMI 23.7
== END 2024-01-06 14:45 | disposition home or self-care (01) ==
LOC: HO.HMGH 13:53
PROVIDERS: PCP Internal Medicine; Visit Provider Internal Medicine
DX: E11.9 Type 2 diabetes mellitus without complications (principal); E78.00 Pure hypercholesterolemia, unspecified
CPT/HCPCS: 83036; 99214; G2211

== ENCOUNTER 2024-04-13 14:23 | Outpatient (AMB) | payer OTHER, SELFPAY ==
--- NOTE | 2024-04-13 14:29 | MHC.PC.OV ---
Vital Signs 04/13/24 14:30 Height 5 ft 4 in Weight 137 lb BMI 23.5 BP 130/72 Blood Pressure Location Lt brachial Position Sitting Pulse 76 Pulse Source Pulse Oximeter Pulse Oximetry (%) 97 Oxygen Delivery Method Room Air Intake Visit Reasons: 3mof\u Intake Note: Patient is here to follow up on DM, Hypercholesterolemia. Donkey Ride Operator Required: No Manufacturing Operator: Not Required per policy Accompanied by: Self / Same As Patient Allergies No Known Allergies Allergy (Verified 04/13/24 14:30) Tobacco use date assessed: 04/13/24 Dental Screening Dental Screen Date: 01/06/24 HPI 3mof\u HPI Details 58-year-old male presents to the office to discuss his chronic medical conditions. Patient is compliant with medications and reporting no side effects. Able to function and do all activities of daily living. Does not check his blood sugars often. Patient continues to refuse to get a screening colonoscopy or Cologuard. 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 Surgical History No history of previous surgery Family History Mother Mental problem Father Renal failure Social History Housing: Apartment Alcohol intake: current Alcohol intake frequency: holidays/special occasions only Alcohol type: beer Patient Tobacco Use Status: Never used Tobacco e-Cigarette/Vaping Use: Never Used Second Hand Smoke Exposure: No service: No Current occupational status: retired Cognitive needs: No Hearing needs: No Vision needs: No Questionnaire Thrive Questionnaire Date Thrive assessed: 01/06/24 Are you currently unemployed and looking for a job?: No MONICA-7 AMB Questionnaire MONICA-7 Date MONICA - 7 assessed: 01/06/24 Source: Developed by Drs. Renny Yoon, Christina Freeman, Bryce Tubbs and colleagues, with an educational tanmay from [employer]. Physical exam (Primary Care) Vital Signs: Last Vital Signs Pulse 76 04/13/24 14:30 BP 130/72 04/13/24 14:30 Pulse Ox 97 04/13/24 14:30 Oxygen Delivery Method Room Air 04/13/24 14:30 BMI result Body Mass Index 23.5 Tobacco/Smoking Status: Tobacco use Status Tobacco use date assessed 04/13/24 04/13/24 14:35 Patient Tobacco Use Status Never used Tobacco 04/13/24 14:35 e-Cigarette/Vaping Use Never Used 04/13/24 14:35 Thrive Assessment: Date of Thrive Assessment Date Thrive assessed 01/06/24 04/13/24 14:35 Const General: cooperative and healthy appearing Nutritional Appearance: well nourished Orientation/consciousness: patient oriented x3 Limitations: no limitations HENMT Head: Yes normal to inspection Eyes General: appearance normal, both eyes and all related structures Neck Neck: Yes normal visual inspection Chest Chest palpation & inspection: normal palpation of entire chest wall Resp Effort & Inspection: normal respiratory effort Neuro General: patient oriented x3 Results AMB Hemoglobin A1c AMB Hemoglobin A1c 6.7 % Last Edit by AIME Ellis on 04/13/24 14:43 Results Reviewed Results Reviewed: Laboratory Last Values Hgb A1c (Clinic) 6.7 % (4.0-6.0) H 04/13/24 14:29 Assessment and Plan Assessment & Plan (1) Diabetes mellitus: Code(s): E11.9 - Type 2 diabetes mellitus without complications Qualifiers: Diabetes mellitus type: type 2 Diabetes mellitus intermission coordinator insulin use: without intermission coordinator use Diabetes mellitus complication status: without complication Qualified Code(s): E11.9 - Type 2 diabetes mellitus without complications Plan: A1c is 6.7. Continue medications at same dosage. Orders: Orders AMB Hemoglobin A1c Today E11.9 - Type 2 diabetes mellitus without complications Coding Level of Care Code Est Pt Level 3 (04146) Complex EM visit Add On G2211 Diagnoses Type 2 diabetes mellitus without complication, without long-term current use of insulin E11.9 Diabetes mellitus type: type 2 Diabetes mellitus alf insulin use: without intermission coordinator use Diabetes mellitus complication status: without complication
[2024-04-13 14:30] VITALS: BP 130/72; PULSE 76; O2SAT 97; BMI 23.5
== END 2024-04-13 15:05 | disposition home or self-care (01) ==
PROVIDERS: PCP Internal Medicine; Visit Provider Internal Medicine
DX: E11.9 Type 2 diabetes mellitus without complications (principal)

== ENCOUNTER → 2024-04-13 14:23 | Outpatient (BNVA) | payer OTHER, SELFPAY | PROVIDERS: PCP Internal Medicine; Visit Provider Internal Medicine | DX: E11.9 Type 2 diabetes mellitus without complications (principal) | CPT/HCPCS: 83036; 99212 ==

== ENCOUNTER 2024-08-10 12:08 | Emergency (ER) | payer OTHER, SELFPAY ==
--- NOTE | ~2024-08-10 | XR_ITS ---
EXAMINATION: XR CHEST 2 VIEWS HISTORY: cough COMPARISON: There are no prior studies for comparison. FINDINGS: PA and lateral views of the chest are submitted. The lungs are expanded and clear. There is no pleural effusion, pneumothorax, or pulmonary vascular congestion. The heart is normal in size. There is degenerative disc disease of the spine. XR/XR chest 2V IMPRESSION: Clear lungs. Electronically signed by: Renny De La Rosa MD 08/10/2024 03:49 PM [facility]
[2024-08-10 13:25] VITALS: BP 187/85; PULSE 79; RESP 16; TEMP 36.5; O2SAT 100; BMI 22.6
--- NOTE | 2024-08-10 13:28 | ED.GENADULT ---
HPI - General Adult General Chief complaint: Upper Respiratory Symptoms Stated complaint: cough Time Seen by Provider: 08/10/24 18:17 Source: patient, RN notes reviewed and old records reviewed Mode of arrival: ambulatory Limitations: no limitations History of Present Illness ED Provider: Tim AWAD narrative: 58-year-old male with past medical history significant for diabetes presents for evaluation of a cough. Patient reports a cough for the last 2 days. Denies any chest pain, shortness of breath. Denies any leg swelling He denies any fevers, chills, recent travel No other complaints or concerns with the exception of the cough Related Data Previous Rx's ?Medication ?Instructions ?Recorded glimepiride 4 mg tablet 4 mg PO QAM #90 tabs 02/17/24 metformin 500 mg tablet 500 mg PO DAILY #90 tabs 03/16/24 simvastatin 40 mg tablet 40 mg PO QPM #90 tabs 04/13/24 enalapril maleate 10 mg tablet 10 mg PO DAILY #90 tabs 07/29/24 benzonatate 200 mg capsule 200 mg PO TID PRN cough #20 caps 08/10/24 Allergies Allergy/AdvReac Type Severity Reaction Status Date / Time No Known Allergies Allergy Verified 08/10/24 13:26 Review of Systems Constitutional: Constitutional: Denies body ache(s), Denies chills, Denies headache(s) and Denies snoring Eyes: Eyes: Denies blurry vision ENT: Denies vertigo, Denies dizziness and Denies headache(s) Cardiovascular: Cardiovascular: Denies chest pain and Denies dyspnea Respiratory: Respiratory: Reports cough, Denies hemoptysis, Denies dyspnea, Denies snoring, Denies stridor and Denies wheezing Gastrointestinal: Gastrointestinal: Denies abdominal pain, Denies nausea and Denies vomiting Musculoskeletal: Musculoskeletal: Denies back pain Integumentary/Breasts: Skin/Breast: Denies rash Neurologic: Denies vertigo, Denies dizziness and Denies headache(s) Allergic/Immunologic: Allergic/Immunologic: Denies wheezing PMF Past Medical History Medical History Diabetes mellitus Hypertension Hypercholesterolemia 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 Surgical History No history of previous surgery Family History Family History Mother Mental problem Father Renal failure Social History Social History Housing: Apartment Alcohol intake: current Alcohol intake frequency: holidays/special occasions only Alcohol type: beer Patient Tobacco Use Status: Never used Tobacco e-Cigarette/Vaping Use: Never Used Second Hand Smoke Exposure: No service: No Current occupational status: retired Cognitive needs: No Hearing needs: No Vision needs: No Physical Exam ED Vital Signs: Vital Signs - 24 hr 08/10/24 13:25 Temperature 97.7 F Pulse Rate 79 Respiratory Rate 16 Blood Pressure 187/85 H Pulse Oximetry 100 Oxygen Delivery Method Room Air BMI result Body Mass Index 22.6 Const General: healthy appearing, comfortable, no acute distress, alert and awake Nutritional Appearance: well nourished Orientation/consciousness: patient oriented x3 HENMT Head: Yes normocephalic and Yes atraumatic Eyes Eyelids: Yes eyelids normal Conjunctivae: conjunctivae normal Sclerae: sclerae normal Corneas: corneas normal Pupils: Equal, round and reactive pupils present EOM: EOMs intact bilaterally Neck Neck: Yes full ROM Resp Effort & Inspection: normal respiratory effort, able to speak in complete sentences, no audible wheezes and not labored Auscultation: clear to auscultation bilaterally Cardio Rate: regular rate Rhythm: regular rhythm GI Inspection: No distended Palpation (GI): Soft to palpation, not firm, nontender, no guarding and not rigid Skin General skin exam: elasticity normal Neuro General: patient oriented x3 Cranial nerves: Yes Equal, round and reactive pupils present and Yes Bilaterally intact EOM present Cognition (Neuro): normal cognition Extrem Other: Moving all extremities well without any obvious deformities Course Course Course Narrative: RME, this is a rapid medical exam performed by Bairon Dumont please refer to primary provider for complete H&P- 58-year-old male presents for evaluation of cough over last 2 days. He is a nonsmoker. Plan for viral swabs. Lungs are clear to auscultation. Will defer chest x-ray at this time Medical Decision Making Medical Decision Making MDM Narrative: 58-year-old male presents for evaluation of cough. He denies associated symptoms including shortness of breath. His lungs are clear to auscultation. He had viral swabs ordered which are negative for influenza, COVID-19, RSV. A chest x-ray that shows no infiltrates or effusions. He is not hypoxic, tachypneic, tachycardic. He had no recent travel or risk factors for PE. The patient be discharged with symptomatic treatment for cough Differential Diagnosis Differential Diagnoses: The differential diagnosis associated with the presentation includes Acute cough Postnasal drip Bronchitis Pneumonia Influenza Lab Data [facility] Lab Attestation statement: I reviewed the patient's lab results. Viral swabs negative Labs: Lab Results 08/10/24 Range/Units 14:20 Influenza Type A (PCR) NEGATIVE (Negative) Influenza Type B (PCR) NEGATIVE (Negative) RSV RNA Qual (PCR) NEGATIVE (Negative) SARS-CoV-2 RNA (RT-PCR) NEGATIVE (Negative) Radiology Impression Discussion of test interpretation with radiology: I have reviewed the radiologist's reading. Radiologist Impression: FINDINGS: PA and lateral views of the chest are submitted. The lungs are expanded and clear. There is no pleural effusion, pneumothorax, or pulmonary vascular congestion. The heart is normal in size. There is degenerative disc disease of the spine. XR/XR chest 2V IMPRESSION: Clear lungs. Electronically signed by: Renny De La Rosa MD 08/10/2024 03:49 PM [facility] Discharge Plan Discharge Clinical Impression: Acute cough Patient Disposition: Home, Self-Care Instructions: Acute Cough (ED) Additional Instructions: You tested negative for influenza, COVID-19, RSV. Your chest x-ray did not show any abnormalities. Use benzonatate as needed for cough Your symptoms are likely related to a viral etiology Follow-up with your primary doctor, return for new or worsening symptoms Prescriptions: New benzonatate 200 mg capsule 200 mg PO TID PRN (Reason: cough) Qty: 20 0RF No Action glimepiride 4 mg tablet 4 mg PO QAM Qty: 90 1RF metformin 500 mg tablet 500 mg PO DAILY Qty: 90 1RF simvastatin 40 mg tablet 40 mg PO QPM Qty: 90 0RF enalapril maleate 10 mg tablet 10 mg PO DAILY Qty: 90 0RF Discharge Date/Time: 08/10/24 18:24 Print Language: Welsh
[2024-08-10 15:03] LABS: Influenza A PCR NEGATIVE (Negative); Influenza B PCR NEGATIVE (Negative); Resp Syncy Virus RNA Qual PCR NEGATIVE (Negative); SARS COV2 PCR INHOUSE NEGATIVE (Negative)
== END 2024-08-10 18:24 | disposition home or self-care (01) ==
PROVIDERS: Physician Assistant; Emergency Provider Emergency Medicine Emergency Medical Services; PCP Internal Medicine
DX: R05.9 Cough, unspecified (principal); E11.9 Type 2 diabetes mellitus without complications; I10 Essential (primary) hypertension; Z03.818 Encounter for observation for suspected exposure to other biological agents ruled out
CPT/HCPCS: 0241U; 71046; 99281; 99283

== ENCOUNTER → 2024-08-10 15:06 | Outpatient (BNV) | payer OTHER, SELFPAY | PROVIDERS: PCP Internal Medicine; Visit Provider Radiology Diagnostic Radiology | DX: R05.9 Cough, unspecified (principal) | CPT/HCPCS: 71046 ==

== ENCOUNTER 2024-11-23 14:35 | Outpatient (REF) | payer OTHER, SELFPAY ==
[2024-11-23 17:16] LABS: Hematocrit 41.9 % (42.0-52.0); Hemoglobin 14.2 g/dl (14.0-18.0); Mean Corpuscular HGB Conc 33.9 g/dl (31.0-36.0); Mean Corpuscular Hemoglobin 30.5 pg (27.0-33.0); Mean Corpuscular Volume 89.9 fL (80.0-98.0); Mean Platelet Volume 11.4 fL (9.4-12.4); Platelet Count 229 X10*3/uL (160-400); Red Blood Count 4.66 X10*6/uL (4.60-5.80); Red Cell Distribution Width 12.5 % (11.0-16.0); White Blood Count 6.8 X10*3/uL (4.8-10.8)
[2024-11-23 17:50] LABS: Appearance Urine Clear; Color Urine Yellow; Glucose Urine UA Negative (Negative); Leukocyte Esterase Urine Negative (Negative); Nitrite Urine Negative (Negative); PH 7.5 (5.0-9.0); UMIC TRIGGER UA YES; Urine Blood Negative (Negative); Urine Ketones Negative (Negative); Urine Protein 100 (2+) mg/dL (Neg-Trace)
[2024-11-23 17:57] LABS: Alanine Aminotransferase 24 U/L (0-40); Albumin Level 4.4 g/dL (3.5-5.0); Alkaline Phosphatase 74 U/L (39-117); Anion Gap 12 (12-20); Aspartate Amino Transferase 25 U/L (5-37); Bilirubin Direct 0.2 mg/dL (0.0-0.5); Bilirubin Total 0.4 mg/dL (0.0-1.0); Blood Urea Nitrogen 9 mg/dL (9-16); Calcium 10.2 mg/dL (8.4-10.2); Carbon Dioxide 28 mmol/L (22-29); Chloride 105 mmol/L (96-108); Cholesterol 180 mg/dL (<200); Estimated Glomerular Filt Rate > 60; Glucose Random 95 mg/dL (60-115); HDL Cholesterol 64 mg/dL (>40); LDL Cholesterol Calculated 107 mg/dL (<100); Potassium 3.9 mmol/L (3.3-5.1); Sodium 141 mmol/L (135-145); Total Protein 7.9 g/dL (6.5-8.0); Triglycerides 48 mg/dL (<150)
[2024-11-23 18:11] LABS: Thyroid Stimulating Hormone 1.06 uIU/mL (0.32-4.0)
[2024-11-23 18:32] LABS: Bacteria Urine None Seen (None Seen); Hyaline Casts Urine 0-2 /LPF (0-2); RBC Urine 0-2 /HPF (0-2); Squamous Epithelial Cell Urine 0-2 /HPF (0-2); WBC Urine 0-5 /HPF (0-5)
[2024-11-23 18:37] LABS: Creatinine Urine 52.33 mg/dL
[2024-11-23 18:47] LABS: Microalbum/Creatinine Ratio Ur 1045.2 ug/mg cr (<30)
== END 2024-11-23 14:36 | disposition home or self-care (01) ==
LOC: HO.LAB 14:35
PROVIDERS: PCP Internal Medicine; Visit Provider Internal Medicine
DX: E11.9 Type 2 diabetes mellitus without complications (principal); E78.00 Pure hypercholesterolemia, unspecified
CPT/HCPCS: 36415; 80048; 80061; 80076; 81001; 82043; 82570; 83036; 84443; 85027; 99212

== ENCOUNTER 2024-11-23 14:35 | Outpatient (AMB) | payer OTHER, SELFPAY ==
--- NOTE | 2024-11-23 15:02 | A.OFFPC_ITS ---
Vital Signs 11/23/24 15:03 Height 5 ft 4 in Weight 136 lb 6 oz BMI 23.4 BP 160/80 H Blood Pressure Location Rt brachial Position Sitting Pulse 80 Pulse Source Pulse Oximeter Temp 97.6 F Temp Source Temporal Artery Scan Pulse Oximetry (%) 97 Oxygen Delivery Method Room Air Intake Visit Reasons: Diabetes - see comments Intake Note: Patient is here to follow up on DM. 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: No Testboard Operator: Not Required per policy Accompanied by: Self / Same As Patient Allergies No Known Allergies Allergy (Verified 11/23/24 15:02) Tobacco use date assessed: 11/23/24 Dental Screening Dental Screen Date: 11/23/24 Did you have a dental visit in the last 12 months?: No Did you have a dental problem in the last 6 months where you did not have access to dental care?: No Was dental information given to patient?: Patient has dentist [facility] Medical History Diabetes mellitus Hypertension Hypercholesterolemia 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 1. Little interest or pleasure in doing things: not at all 2. Feeling down, depressed, or hopeless: not at all 3. Trouble falling or staying asleep, or sleeping too much: not at all 4. Feeling tired or having little energy: not at all 5. Poor appetite or overeating: not at all 6. Feeling bad about yourself - or that you are a failure or have let yourself or your family down: not at all 7. Trouble concentrating on things, such as reading the newspaper or watching television: not at all 8. Moving or speaking so slowly that other people could have noticed. Or the opposite - being so fidgety or restless that you have been moving around a lot more than usual: not at all 9. Thoughts that you would be better off or of hurting yourself in some way: not at all Total score: 0 Depression Screening Interpretation: Negative Depression Screening Done: Yes Source: Developed by Drs. Renny Yoon, Christina Freeman, Bryce Tubbs and colleagues, with an educational tanmay from [employer]. Thrive Questionnaire Date Thrive assessed: 11/23/24 I am a: Patient What is your living situation today?: I have a steady place to live Within the past 12 months, did the food you bought not last and you didn't have the money to get more?: Never true Within the past 12 months, did you worry whether your food would run out before you got money to buy more?: Never true Do you have trouble paying for medicines?: No Do you have trouble getting transportation to medical appointments?: No Do you have trouble paying your heating and electricity bill?: No Do you have trouble taking care of your child, family member or friend?: No Do you have trouble with day-to-day activities such as bathing, preparing meals, shopping, managing finances, etc.?: No Are you currently unemployed and looking for a job?: No Are you interested in more education?: No Please select the resources that you would like help with: None Currently or been in a relationship where the following occur: No concerns reported THRIVE Score: 0 AUDIT C Alcohol Use Questionnaire (AUDIT-C) 1. How often do you have a drink containing alcohol?: Never Total Score: 0 MONICA-7 AMB Questionnaire MONICA-7 Date MONICA - 7 assessed: 11/23/24 Feeling nervous, anxious, or on edge: 0 = Not at all Not being able to stop or control worryin = Not at all Worrying too much about different things: 0 = Not at all Trouble relaxin = Not at all Being so restless that it is hard to sit still: 0 = Not at all Becoming easily annoyed or irritable: 0 = Not at all Feeling afraid as if something awful might happen: 0 = Not at all Total MONICA-7 score (0-4 normal; 5-9 mild; 10-14 moderate; 15-21 severe): 0 Source: Developed by Drs. Renny Yoon, Christina Freeman, Bryce Tubbs and colleagues, with an educational tanmay from [employer]. Physical exam (Primary Care) Vital Signs: Last Vital Signs Temp 97.6 F 11/23/24 15:03 Pulse 80 11/23/24 15:03 BP 160/80 H 11/23/24 15:03 Pulse Ox 97 11/23/24 15:03 Oxygen Delivery Method Room Air 11/23/24 15:03 BMI result Body Mass Index 23.4 Tobacco/Smoking Status: Tobacco use Status Tobacco use date assessed 11/23/24 11/23/24 15:10 Patient Tobacco Use Status Never used Tobacco 11/23/24 15:10 e-Cigarette/Vaping Use Never Used 11/23/24 15:10 PHQ-9: PHQ-9 Score PHQ-9: Total score 0 11/23/24 15:10 Depression Screening Interpretation: Negative Thrive Assessment: Date of Thrive Assessment Date Thrive assessed 11/23/24 11/23/24 15:10 Currently or been in a relationship where the following occur: No concerns reported Results AMB Hemoglobin A1c AMB Hemoglobin A1c 6.6 % Last Edit by AIME Ellis on 11/23/24 15:15 Results Reviewed Results Reviewed: Laboratory Last Values Hgb A1c (Clinic) 6.6 % (4.0-6.0) H 11/23/24 15:01 Coding Level of Care Code Est Pt Level 4 (85224) Complex EM visit Add On G2211 Diagnoses Type 2 diabetes mellitus without complication, without long-term current use of insulin E11.9 Diabetes mellitus complication status: without complication Diabetes mellitus [facility] insulin use: without exterminator use Diabetes mellitus type: type 2 Hypercholesterolemia E78.00 Assessment & Plan Assessment & Plan (1) Diabetes mellitus: Code(s): E11.9 - Type 2 diabetes mellitus without complications Category: Medical Qualifiers: Diabetes mellitus complication status: without complication Diabetes mellitus [facility] insulin use: without exterminator use Diabetes mellitus type: type 2 Qualified Code(s): E11.9 - Type 2 diabetes mellitus without complications Plan: A1c is in range. Continue medications at same dosage. (2) Hypercholesterolemia: Code(s): E78.00 - Pure hypercholesterolemia, unspecified Category: Medical Plan: Will call with results of fasting bw. Plan History of Present Illness The patient is a 59-year-old male presenting with a wellness visit and ongoing management of his diagnosed Diabetes Mellitus. He confirmed that his blood sugar levels are stable based on recent lab results, though additional blood work is needed for continued monitoring. The patient adheres to his medication regimen, which aids in managing his condition. He denies any abdominal pain or other symptoms. He is active, engaging in frequent walking that supports his diabetes care. No new symptoms or issues were reported at this time. Social History - Exercise: Patient engages in frequent walking throughout the day. - Medication adherence: Patient confirms compliance with his medication regimen. Review of Systems - Endocrine: Reports stable blood sugar levels. - Gastrointestinal: Denies abdominal pain. Physical Exam General: Cooperative and healthy appearing Nutritional Appearance: Well nourished Orientation/consciousness: Patient oriented x3 Limitations: No limitations Head: Normal to inspection General: Appearance normal, both eyes and all related structures Neck: Normal visual inspection Chest: Normal palpation of entire chest wall Respiratory: Normal respiratory effort Neurology: Patient oriented x3 Results Plan 1. Diabetes Mellitus - Continue medication regimen and obtain additional blood work today. - Follow-up in six months for evaluation. 2. Medication Adherence - Reinforce adherence to medication regimen for effective diabetes management. Discussion Notes I discussed with the patient the importance of obtaining blood work for ongoing evaluation of his Diabetes Mellitus. We reviewed his current stable control of blood sugar levels and reiterated the importance of continued adherence to his prescribed medication regimen. I emphasized that obtaining additional blood work today or tomorrow would provide a better understanding of his glucose control. We agreed on returning for a follow-up appointment in six months for further evaluation. I reassured the patient that no abdominal discomforts or other symptoms require attention at present. Patient Instructions - Continue taking all your prescribed medications daily. - Get your blood work done as soon as possible, preferably today. - Keep up your regular walking and stay active. - Come back in six months for a check-up. - Contact the office if you notice any changes in your health. Orders: Orders AMB Hemoglobin A1c Today E11.9 - Type 2 diabetes mellitus without complications Complete Blood Count no Diff Today E11.9 - Type 2 diabetes mellitus without complications, E78.00 - Pure hypercholesterolemia, unspecified Liver Panel Today E11.9 - Type 2 diabetes mellitus without complications, E78.00 - Pure hypercholesterolemia, unspecified Lipid Panel Today E11.9 - Type 2 diabetes mellitus without complications, E78.00 - Pure hypercholesterolemia, unspecified UA and rflx microscopic Today E11.9 - Type 2 diabetes mellitus without complications, E78.00 - Pure hypercholesterolemia, unspecified Microalbumin, Random (w Creat) Today E11.9 - Type 2 diabetes mellitus without complications, E78.00 - Pure hypercholesterolemia, unspecified Basic Metabolic Panel Today E11.9 - Type 2 diabetes mellitus without complications, E78.00 - Pure hypercholesterolemia, unspecified Thyroid Stimulating Hormone Today E11.9 - Type 2 diabetes mellitus without complications, E78.00 - Pure hypercholesterolemia, unspecified
[2024-11-23 15:03] VITALS: BP 160/80; PULSE 80; TEMP 36.4; O2SAT 97; BMI 23.4
== END 2024-11-23 15:24 | disposition home or self-care (01) ==
LOC: HO.HMCH 14:36
PROVIDERS: PCP Internal Medicine; Visit Provider Internal Medicine
DX: E11.9 Type 2 diabetes mellitus without complications (principal); E78.00 Pure hypercholesterolemia, unspecified

== ENCOUNTER 2025-05-03 19:33 | Emergency (ER) | payer OTHER, SELFPAY ==
--- NOTE | ~2025-05-03 | XR_ITS ---
CLINICAL HISTORY: cough 2 view chest x-ray Comparison: CR/SR - XR CHEST 2V - 08/10/24 15:44 EST Findings: The lungs are clear. Heart size is normal. No acute fracture. IMPRESSION: 1. No acute findings. This document has been electronically signed by: Eva Arredondo MD on 05/03/2025 20:46:34
[2025-05-03 20:09] VITALS: BP 182/83; PULSE 82; RESP 16; TEMP 36.3; O2SAT 97; BMI 22.6
[2025-05-03 20:32] LABS: MANUAL DIFF FLAG NO
[2025-05-03 20:34] LABS: Hematocrit 40.5 % (42.0-52.0); Hemoglobin 13.9 g/dl (14.0-18.0); Imm Gran Abs Auto 0.02 X10*3/uL (0.00-0.03); Imm Gran Pct Auto 0.2 % (0.0-0.4); Lymphocytes Absolute Auto 4.6 X10*3/uL (1.2-4.9); Mean Corpuscular HGB Conc 34.3 g/dl (31.0-36.0); Mean Corpuscular Hemoglobin 30.6 pg (27.0-33.0); Mean Corpuscular Volume 89.2 fL (80.0-98.0); NRBC Abs Auto 0.000 X10*3/uL (0.0-0.012); NRBC Pct Auto 0.0 /100WBC (0.0-0.2); Platelet Count 197 X10*3/uL (160-400); Red Blood Count 4.54 X10*6/uL (4.60-5.80); White Blood Count 10.6 X10*3/uL (4.8-10.8)
[2025-05-03 20:48] LABS: Alanine Aminotransferase 17 U/L (0-40); Albumin Level 4.2 g/dL (3.5-5.0); Alkaline Phosphatase 74 U/L (39-117); Anion Gap 12 (12-20); Aspartate Amino Transferase 22 U/L (5-37); Blood Urea Nitrogen 9 mg/dL (9-16); Calcium 9.5 mg/dL (8.4-10.2); Carbon Dioxide 27 mmol/L (22-29); Chloride 108 mmol/L (96-108); Creatinine Clr Calc Pharmacy 86.0; Estimated Glomerular Filt Rate > 60; Potassium 3.6 mmol/L (3.3-5.1); Sodium 143 mmol/L (135-145); Total Protein 7.1 g/dL (6.5-8.0)
[2025-05-03 20:51] LABS: COVID-19 Test Negative (Negative); IDNOW Serial# 55D5AD1C
[2025-05-03 20:52] LABS: IDNOW Serial# 58CA691E; Influenza B2 Negative (Negative)
[2025-05-03 21:47] VITALS: BP 186/90; PULSE 78; RESP 18; TEMP 36.7; O2SAT 97
--- NOTE | 2025-05-03 21:56 | ED.GENADULT ---
[facility] - General Adult General Chief complaint: Headache Stated complaint: fever,headache Time Seen by Provider: 05/03/25 21:55 Source: patient Mode of arrival: ambulatory Limitations: no limitations History of Present Illness ED Provider: Dr. Roberts [facility] narrative: 59-year-old male presented hospital today for 2 weeks of productive coughing, headaches, fever. Patient does have history of hypertension. Patient stated that he does not have any nausea vomiting or diarrhea. Patient does not feel short of breath does not have any chest pain. Related Data Previous Rx's ?Medication ?Instructions ?Recorded benzonatate 200 mg capsule 200 mg PO TID PRN cough #20 caps 08/10/24 simvastatin 40 mg tablet 40 mg PO QPM #90 tabs 02/26/25 glimepiride 4 mg tablet 4 mg PO QAM #90 tabs 03/02/25 metformin 500 mg tablet 500 mg PO DAILY #90 tabs 03/30/25 enalapril maleate 10 mg tablet 10 mg PO DAILY #90 tabs 04/19/25 acetaminophen 500 mg tablet 1,000 mg (2 x 500 mg) PO Q8H 10 05/03/25 days #60 tabs azithromycin 250 mg tablet See Rx Instructions PO .COMPLEX #6 05/03/25 tabs prednisone 20 mg tablet 40 mg (2 x 20 mg) PO DAILY 5 days 05/03/25 #10 tabs Allergies Allergy/AdvReac Type Severity Reaction Status Date / Time No Known Allergies Allergy Verified 05/03/25 20:15 Review of Systems Review of Systems: Pertinent review of systems as mentioned in HPI. All other system otherwise negative. 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 Surgical History No history of previous surgery Family History Family History Mother Mental problem Father Renal failure Social History Social History Housing: Apartment Alcohol intake: current Alcohol intake frequency: holidays/special occasions only Alcohol type: beer Patient Tobacco Use Status: Never used Tobacco e-Cigarette/Vaping Use: Never Used Second Hand Smoke Exposure: No Advance Directives: No Advance Directives Information Provided: No service: No Current occupational status: retired Cognitive needs: No Hearing needs: No Vision needs: No Physical Exam ED Exam Exam: General: Pleasant, no distress, interacting appropriately Head: Normacephalic, atraumatic ENT: oral mucosa moist, neck supple, no tracheal deviation Cardiovascular: regular rate, regular rhythm, no murmurs, rubbing, gallops Respiratory: CTAB, no wheeze, rales, rhonchi Gastrointestinal: Soft, non distended, non tender, non guarding Neurological: Awake and alert, no facial droop noted Skin: Warm and dry Psychiatric: Appropriate mood and thoughts Vital Signs: Vital Signs - 24 hr 05/03/25 20:09 05/03/25 21:47 05/03/25 22:17 Temperature 97.3 F 98.1 F 98.1 F Pulse Rate 82 78 78 Respiratory Rate 16 18 18 Blood Pressure 182/83 H 186/90 H 186/90 H Pulse Oximetry 97 97 97 Oxygen Delivery Method Room Air Room Air Room Air BMI result Body Mass Index 22.6 Medications Administered Discontinued Medications Generic Name Dose Route Start Last Admin Trade Name Freq PRN Reason Stop Dose Admin Ibuprofen 400 mg 05/03/25 22:12 05/03/25 22:15 Ibuprofen 400 Mg Tablet PO 05/03/25 22:13 400 mg ONCE ONE Administration Medical Decision Making Medical Decision Making [facility] Narrative: 59-year-old male history of hypertension presented hospital today for coughing, headaches. Sore throat and nasal congestion. I suspect patient is likely have upper respiratory infection however given the chronicity of his coughing. We will plan to start patient on prednisone and start him on azithromycin for coverage. Patient appears to be well does not appear to be in respiratory distress. He appears to be medically stable at this time. We will plan to discharge patient with a close outpatient follow up with his primary care doctor. He agrees and understands this plan. Lab work is unremarkable, chest x-ray did not show any signs of pneumonia. COVID and flu swab are negative. Differential Diagnosis Differential Diagnoses: The differential diagnosis associated with the presentation includes Bronchitis, pneumonia, COVID, flu Lab Data [facility] Lab Attestation statement: I reviewed the patient's lab results. 05/03/25 20:21 05/03/25 20:21 Labs: Lab Results 05/03/25 Range/Units 20:21 WBC 10.6 (4.8-10.8) X10*3/uL RBC 4.54 L (4.60-5.80) X10*6/uL Hgb 13.9 L (14.0-18.0) g/dl Hct 40.5 L (42.0-52.0) % MCV 89.2 (80.0-98.0) fL MCH 30.6 (27.0-33.0) pg MCHC 34.3 (31.0-36.0) g/dl RDW 12.1 (11.0-16.0) % Plt Count 197 (160-400) X10*3/uL MPV 11.1 (9.4-12.4) fL Immature Gran % (Auto) 0.2 (0.0-0.4) % Neut % (Auto) 45.4 (45-73) % Lymph % (Auto) 43.6 H (20-40) % Gray % (Auto) 6.4 (2-11) % Eos % (Auto) 3.6 (0-4) % Baso % (Auto) 0.8 (0-2) % Lymph # (Auto) 4.6 (1.2-4.9) X10*3/uL Gray # (Auto) 0.7 (0.1-1.2) X10*3/uL Eos # (Auto) 0.4 (0.0-0.4) X10*3/uL Baso # (Auto) 0.1 (0.0-0.2) X10*3/uL Abs Immat Gran (auto) 0.02 (0.00-0.03) X10*3/uL Absolute Neuts (auto) 4.8 (2.0-8.3) x10*3/uL Absolute Nucleated RBC 0.000 (0.0-0.012) X10*3/uL Nucleated RBC % (auto) 0.0 (0.0-0.2) /100WBC Sodium 143 (135-145) mmol/L Potassium 3.6 (3.3-5.1) mmol/L Chloride 108 (96-108) mmol/L Carbon Dioxide 27 (22-29) mmol/L Anion Gap 12 (12-20) BUN 9 (9-16) mg/dL Creatinine 0.82 (0.5-1.4) mg/dL Estim Creat Clear Calc 86.0 Estimated GFR > 60 Random Glucose 83 (60-115) mg/dL Calcium 9.5 D (8.4-10.2) mg/dL Total Bilirubin 0.4 (0.0-1.0) mg/dL AST 22 (5-37) U/L ALT 17 (0-40) U/L Alkaline Phosphatase 74 (39-117) U/L Total Protein 7.1 (6.5-8.0) g/dL Albumin 4.2 (3.5-5.0) g/dL COVID-19 (LORRAINE) Negative (Negative) COVID-19 Clin Com See Note Influenza Type A (SEMAJ) Negative (Negative) Influenza Type B (SEMAJ) Negative (Negative) Influenza A & B Note See Note Independent Interpretation I performed an independent interpretation of an: Plain X-Ray Radiology Impression Discussion of test interpretation with radiology: I have reviewed the radiologist's reading. Discharge Plan Discharge Clinical Impression: Bronchitis Patient Disposition: Home, Self-Care Instructions: Acute Bronchitis (ED) Additional Instructions: Follow up with your primary care doctor to ensure you are feeling better Prescriptions: New prednisone 20 mg tablet 40 mg PO DAILY 5 Days Qty: 10 0RF azithromycin 250 mg tablet See Rx Instructions .ROUTE .COMPLEX Qty: 6 0RF Rx Instructions: For 250 mg dose pack: take 500 mg today (day 1), then 250 mg for 4 days (days 2-5) acetaminophen 500 mg tablet 1,000 mg PO Q8H 10 Days Qty: 60 0RF No Action simvastatin 40 mg tablet 40 mg PO QPM Qty: 90 0RF glimepiride 4 mg tablet 4 mg PO QAM Qty: 90 1RF metformin 500 mg tablet 500 mg PO DAILY Qty: 90 0RF enalapril maleate 10 mg tablet 10 mg PO DAILY Qty: 90 0RF benzonatate 200 mg capsule 200 mg PO TID PRN (Reason: cough) Qty: 20 0RF Interventions: ED Discharge Assessment Last Done: 05/03/25 22:17 Discharge Date/Time: 05/03/25 22:17 Print Language: Greek
[2025-05-03 22:17] VITALS: BP 186/90; PULSE 78; RESP 18; TEMP 36.7; O2SAT 97
== END 2025-05-03 22:17 | disposition home or self-care (01) ==
PROVIDERS: Emergency Provider Student in an Organized Health Care Education/Training Program; PCP Internal Medicine
DX: J20.9 Acute bronchitis, unspecified (principal); I10 Essential (primary) hypertension; E11.9 Type 2 diabetes mellitus without complications; Z79.899 Other long term (current) drug therapy
CPT/HCPCS: 71046; 80053; 85025; 87502; 87635; 99283; 99284

== ENCOUNTER → 2025-05-03 20:16 | Outpatient (BNV) | payer OTHER, SELFPAY | PROVIDERS: PCP Internal Medicine; Visit Provider Radiology Diagnostic Radiology | DX: R05.9 Cough, unspecified (principal) | CPT/HCPCS: 71046 ==

== ENCOUNTER 2025-06-07 14:30 | Outpatient (AMB) | payer OTHER, SELFPAY ==
--- NOTE | 2025-06-07 14:48 | MHC.PC.OV ---
Vital Signs 06/07/25 14:49 Height 5 ft 4 in Weight 142 lb 4 oz BMI 24.4 BP 140/60 H Blood Pressure Location Lt brachial Position Sitting Pulse 88 Pulse Source Pulse Oximeter Temp 97.1 F Temp Source Temporal Artery Scan Pulse Oximetry (%) 96 Oxygen Delivery Method Room Air Intake Visit Reasons: 6 month f/u- repeat A1C - see comment Intake Note: Patient is here to follow up on DM, Hypercholesterolemia. Program Developer Required: No Ballet Master/Mistress: Not Required per policy Accompanied by: Self / Same As Patient Allergies No Known Allergies Allergy (Verified 06/07/25 14:48) Tobacco use date assessed: 06/07/25 Dental Screening Dental Screen Date: 11/23/24 HPI HPI Comments History of Present Illness Details History of Present Illness - The patient is a 59 year old individual presenting for follow-up for chronic condition management. - The patient reports feeling better after taking medication for a recent cold. - The patient has a history of diabetes, with a recent HbA1c of 7.5%. - The patient's medication regimen includes glimepiride and metformin, with metformin currently being taken once a day. - The patient has previously taken metformin twice a day. Social History Results - Labs: HbA1c is 7.5%. 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 Surgical History No history of previous surgery Family History Mother Mental problem Father Renal failure Social History Housing: Apartment Alcohol intake: current Alcohol intake frequency: holidays/special occasions only Alcohol type: beer Patient Tobacco Use Status: Never used Tobacco e-Cigarette/Vaping Use: Never Used Second Hand Smoke Exposure: No service: No Current occupational status: retired Cognitive needs: No Hearing needs: No Vision needs: No Questionnaire Thrive Questionnaire Date Thrive assessed: 11/23/24 I am a: Patient What is your living situation today?: I have a steady place to live Within the past 12 months, did the food you bought not last and you didn't have the money to get more?: Never true Within the past 12 months, did you worry whether your food would run out before you got money to buy more?: Never true Do you have trouble paying for medicines?: No Do you have trouble getting transportation to medical appointments?: No Do you have trouble paying your heating and electricity bill?: No Do you have trouble taking care of your child, family member or friend?: No Do you have trouble with day-to-day activities such as bathing, preparing meals, shopping, managing finances, etc.?: No Are you currently unemployed and looking for a job?: No Are you interested in more education?: No Please select the resources that you would like help with: None Currently or been in a relationship where the following occur: No concerns reported THRIVE Score: 0 MONICA-7 AMB Questionnaire MONICA-7 Date MONICA - 7 assessed: 11/23/24 Source: Developed by Drs. Renny Yoon, Christina Freeman, Bryce Tubbs and colleagues, with an educational tanmay from [employer]. Review of Systems Narrative Review of Systems - General: Reports feeling better. - Endocrine: Reports blood glucose levels are good. - Respiratory: Reports recent cold symptoms have resolved. Physical exam (Primary Care) Vital Signs: Last Vital Signs Temp 97.1 F 06/07/25 14:49 Pulse 88 06/07/25 14:49 BP 140/60 H 06/07/25 14:49 Pulse Ox 96 06/07/25 14:49 Oxygen Delivery Method Room Air 06/07/25 14:49 BMI result Body Mass Index 24.4 Tobacco/Smoking Status: Tobacco use Status Tobacco use date assessed 06/07/25 06/07/25 14:55 Patient Tobacco Use Status Never used Tobacco 06/07/25 14:55 e-Cigarette/Vaping Use Never Used 06/07/25 14:55 Thrive Assessment: Date of Thrive Assessment Date Thrive assessed 11/23/24 06/07/25 14:55 Currently or been in a relationship where the following occur: No concerns reported Narrative Physical Exam General: Cooperative and healthy appearing Nutritional Appearance: Well nourished Orientation/consciousness: Patient oriented x3 Limitations: No limitations Head: Normal to inspection General: Appearance normal, both eyes and all related structures Neck: Normal visual inspection Chest: Normal palpation of entire chest wall Respiratory: Normal respiratory effort Neurology: Patient oriented x3 Results AMB Hemoglobin A1c AMB Hemoglobin A1c 7.5 % Last Edit by AIME Ellis on 06/07/25 15:05 Results Reviewed Results Reviewed: Laboratory Last Values Hgb A1c (Clinic) 7.5 % (4.0-6.0) H 06/07/25 14:47 Coding Level of Care Code Est Pt Level 4 (45885) Complex visit Add On G2211 Diagnoses Type 2 diabetes mellitus without complication, without long-term current use of insulin E11.9 Diabetes mellitus type: type 2 Diabetes mellitus intermediate manager insulin use: without intermediate manager use Diabetes mellitus complication status: without complication Assessment & Plan Assessment & Plan (1) Diabetes mellitus: Code(s): E11.9 - Type 2 diabetes mellitus without complications Category: Medical Qualifiers: Diabetes mellitus type: type 2 Diabetes mellitus intermediate manager insulin use: without correction use Diabetes mellitus complication status: without complication Qualified Code(s): E11.9 - Type 2 diabetes mellitus without complications Plan Plan - Will increase metformin to twice a day due to elevated HbA1c of 7.5. - Told the patient to continue glimepiride as prescribed. - Discussed influenza vaccination, but the patient declined at this time. - Will monitor progress at follow-up. Discussion Notes I discussed the patient's recent lab results, noting that the HbA1c of 7.5% is slightly elevated. I recommended increasing the metformin dosage from once daily to twice daily to improve glycemic control, and the patient agreed to this change. We also discussed the annual flu shot, which the patient declined at this time because of feeling better after a recent illness. I reassured the patient that the patient's overall condition is good. Patient Instructions - Increase your metformin medication to twice a day as discussed. - Continue taking your other diabetes medication, glimepiride, as prescribed. - Your refills have been taken care of. Orders: Orders AMB Hemoglobin A1c 06/07/25 E11.9 - Type 2 diabetes mellitus without complications Medications: Refilled glimepiride 4 mg PO QAM 90 tabs 1RF enalapril maleate 10 mg PO DAILY 90 tabs 0RF
[2025-06-07 14:49] VITALS: BP 140/60; PULSE 88; TEMP 36.2; O2SAT 96; BMI 24.4
== END 2025-06-07 15:25 | disposition home or self-care (01) ==
LOC: HO.HMCH 14:31
PROVIDERS: PCP Internal Medicine; Visit Provider Internal Medicine
DX: E11.9 Type 2 diabetes mellitus without complications (principal)

== ENCOUNTER → 2025-06-07 14:30 | Outpatient (BNVA) | payer OTHER, SELFPAY | PROVIDERS: PCP Internal Medicine; Visit Provider Internal Medicine | DX: E11.9 Type 2 diabetes mellitus without complications (principal) | CPT/HCPCS: 83036; 99212 ==